=== PATIENT | female | born 1975 | race Hispanic/Latino ===

== ENCOUNTER 2018-08-02 11:07 | Emergency (ER) | payer BC ==
[~2018-08-02 11:07] MED LIST: JENUVIA PO; LISI10TA7 PO; METF-446 PO; PRAVAST PO
[2018-08-02] MEDS ORDERED: ONDANSETRON HCL 4 MG/2 ML VIAL ONE (11:19)
[2018-08-02 11:45] LABS: BILIRUBIN,URINE Negative (NEGATIVE); COLOR,URINE Yellow (YELLOW); GLUCOSE, URINE (UA) >=1000 mg/dL (NEGATIVE); KETONES,URINE Negative (NEGATIVE); LEUKOCYTE ESTERASE ,URINE Negative (NEGATIVE); NITRATE,URINE Negative (NEGATIVE); OCCULT BLOOD,URINE Negative (NEGATIVE); PH,URINE 6.5 (5.0-8.0); PROTEIN,URINE Negative (NEGATIVE); UROBILINOGEN,URINE 0.2 mg/dL (0.2-1.0)
[2018-08-02 11:46] LABS: HCG,QUAL RESULT NEGATIVE (NEGATIVE)
[2018-08-02 11:47] LABS: APPEARANCE,URINE CLEAR (CLEAR)
[2018-08-02 11:50] LABS: BASOPHILS % (AUTO) 0.3 % (0.0-5.0); EOSINOPHILS % (AUTO) 1.2 % (0.0-8.0); HEMATOCRIT 40.1 % (36-48); LYMPHOCYTES % (AUTO) 31.2 % (21.0-51.0); MEAN CORPUSCULAR HGB CONC 34.3 g/dL (32.0-36.0); MEAN CORPUSCULAR VOLUME 87.4 fL (79-99); MONOCYTES % (AUTO) 6.5 % (3.0-13.0); NEUTROPHILS % (AUTO) 60.8 % (40.0-77.0); PLATELET COUNT (AUTO) 351 K/uL (130-400); RED BLOOD CELL COUNT(AUTO) 4.58 MIL/uL (4.00-5.50); RED CELL DISTRIBUTION WIDTH 14.1 % (11.0-15.5); WHITE BLOOD COUNT (AUTO) 7.6 K/uL (4.8-10.8)
[2018-08-02 11:52] LABS: BACTERIA,URINE Rare /HPF (None Seen); RBC,URINE 0-1 /HPF (0-1); SQUAMOUS EPITHELIAL CELL,UR Rare /HPF (0-2); WBC,URINE 0-1 /HPF (0-1)
[2018-08-02 11:58] LABS: AMPHET/METH SCREEN,URINE NEGATIVE (NEGATIVE); BARBITURATE SCREEN, URINE NEGATIVE (NEGATIVE); BENZODIAZEPINES SCREEN,URINE NEGATIVE (NEGATIVE); CANNABINOID SCREEN,URINE NEGATIVE (NEGATIVE); COCAINE SCREEN,URINE NEGATIVE (NEGATIVE); OPIATE SCREEN,URINE NEGATIVE (NEGATIVE); PHENCYCLIDINE SCREEN,URINE NEGATIVE (NEGATIVE)
[2018-08-02 12:17] LABS: AMYLASE 44 U/L (25-115); LIPASE 168 U/L (114-286)
[2018-08-02] MEDS ORDERED: SODIUM CHLORIDE 0.9% 1000ML 1,000 ML IV ONE (12:23)
[2018-08-02 12:47] LABS: CREATININE 0.6 mg/dL (0.5-1.5); POTASSIUM 3.8 mmol/L (3.5-5.1)
[2018-08-02 12:55] LABS: ALBUMIN 3.9 g/dL (3.5-5.0); BILIRUBIN,TOTAL 0.2 mg/dL (0.2-1.0); TOTAL PROTEIN, SERUM 8.5 g/dL (6.0-8.3)
[2018-08-02 12:58] LABS: CREATINE KINASE, TOTAL 631 U/L (21-232); MYOGLOBIN 73 ng/mL (10-92); TROPONIN I < 0.04 ng/mL (0.00-0.06)
== END 2018-08-02 14:30 | disposition home or self-care (01) ==
LOC: EDH 11:07
DX: R55 Syncope and collapse (principal); R11.2 Nausea with vomiting, unspecified; E11.9 Type 2 diabetes mellitus without complications; E78.5 Hyperlipidemia, unspecified; Z88.6 Allergy status to analgesic agent
CPT/HCPCS: 36415; 80053; 80305; 81001; 81025; 82150; 82550; 83690; 83874; 84484 ×2; 85025; 93005; 96361; 96374; 99285; J2405; J7030

== ENCOUNTER 2022-04-25 06:52 | Observation (INO) | payer BC, OTHER ==
[~2022-04-25] VITALS: Ht 167.6 cm; Wt 115.2 kg
[~2022-04-25 06:52] MED LIST changes: +LISI10TA24 PO; -LISI10TA7 PO
[2022-04-25] MEDS ORDERED: PANTOPRAZOLE 40 MG/VIAL IVP STA (07:11)
[2022-04-25] MEDS ORDERED: LACTATED RINGERS 1000ML 1,000 ML IV ONE ×3 (07:30→13:00)
[2022-04-25 07:43] LABS: BASOPHILS % (AUTO) 0.3 % (0.0-5.0); EOSINOPHILS % (AUTO) 2.1 % (0.0-8.0); HEMATOCRIT 37.1 % (36-48); LYMPHOCYTES % (AUTO) 21.2 % (21.0-51.0); MEAN CORPUSCULAR HEMOGLOBIN 29.2 pg (27.0-33.0); MEAN CORPUSCULAR HGB CONC 33.7 g/dL (32.0-36.0); MEAN CORPUSCULAR VOLUME 86.7 fL (79-99); MONOCYTES % (AUTO) 5.8 % (3.0-13.0); NEUTROPHILS % (AUTO) 70.2 % (40.0-77.0); PLATELET COUNT (AUTO) 300 K/uL (130-400); RED BLOOD CELL COUNT(AUTO) 4.28 MIL/uL (4.00-5.50); RED CELL DISTRIBUTION WIDTH 13.9 % (11.0-15.5); WHITE BLOOD COUNT (AUTO) 6.8 K/uL (4.8-10.8)
[2022-04-25 07:44] LABS: APPEARANCE,URINE CLEAR (CLEAR); BILIRUBIN,URINE NEGATIVE (NEGATIVE); COLOR,URINE YELLOW (YELLOW); GLUCOSE, URINE (UA) >=1000 mg/dL (NEGATIVE); KETONES,URINE NEGATIVE (NEGATIVE); LEUKOCYTE ESTERASE ,URINE NEGATIVE Leu/uL (NEGATIVE); NITRATE,URINE NEGATIVE (NEGATIVE); OCCULT BLOOD,URINE NEGATIVE (NEGATIVE); PROTEIN,URINE NEGATIVE (NEGATIVE); UROBILINOGEN,URINE 0.2 mg/dL (0.2-1.0)
[2022-04-25 07:49] LABS: BACTERIA,URINE RARE /HPF (None Seen); MUCUS,URINE RARE LPF (None Seen); RBC,URINE 0-1 /HPF (0-1); SQUAMOUS EPITHELIAL CELL,UR RARE /HPF (0-2); WBC,URINE 0-1 /HPF (0-1)
[2022-04-25 08:14] LABS: CREATININE 0.7 mg/dL (0.5-1.5); POTASSIUM 3.9 mmol/L (3.5-5.1)
[2022-04-25 08:28] LABS: ALBUMIN 3.7 g/dL (3.5-5.0)
[2022-04-25] MEDS: 0.9%NACL 1000ML 1,000 ML IV SCH (14:22)
[2022-04-25] MEDS ORDERED: LIDOCAINE 5% TOPICAL PATCH TP ONE (14:30)
[2022-04-25] MEDS ORDERED: ACETAMINOPHEN WITH CODEINE 1 TAB TAB PO PRN (14:30)
[2022-04-25 14:44] LABS: HEMOGLOBIN A1C 7.2 % (4.0-6.0)
[2022-04-25 14:58] LABS: AMPHET/METH SCREEN,URINE NEGATIVE (NEGATIVE); BARBITURATE SCREEN, URINE NEGATIVE (NEGATIVE); BENZODIAZEPINES SCREEN,URINE NEGATIVE (NEGATIVE); CANNABINOID SCREEN,URINE NEGATIVE (NEGATIVE); COCAINE SCREEN,URINE NEGATIVE (NEGATIVE); OPIATE SCREEN,URINE NEGATIVE (NEGATIVE); PHENCYCLIDINE SCREEN,URINE NEGATIVE (NEGATIVE)
[2022-04-25] MEDS ORDERED: KETOROLAC 15MG/ML VIAL (15MG/ML) IV PRN (15:00)
[2022-04-25] MEDS: INSULIN HUMULIN R 100 UNIT/ML 3ML SQ SCH ×2 (16:20→21:00)
[2022-04-25] MEDS ORDERED: REPA1TAB5 PO (18:05)
[2022-04-25] MEDS ORDERED: ROSU10TA28 PO (18:05)
[2022-04-25] MEDS ORDERED: SEMA1PEN3 SQ (18:05)
[2022-04-25] MEDS ORDERED: VITB12 PO (18:05)
[2022-04-25] MEDS ORDERED: LISI10TA24 PO (18:05)
[2022-04-25] MEDS ORDERED: D (18:05)
[2022-04-25] MEDS ORDERED: EMPA10TA PO (18:05)
[2022-04-25 18:38] VITALS: BP 120/73
[2022-04-25 20:00] VITALS: BP 91/49
[2022-04-25] MEDS: FAMOTIDINE 20MG VIAL IV SCH (20:36)
[2022-04-26] VITALS: BP 110/62
[2022-04-26] MEDS: 0.9%NACL 1000ML 1,000 ML IV SCH (01:54)
[2022-04-26 04:00] VITALS: BP 124/61
[2022-04-26 04:29] LABS: BASOPHILS % (AUTO) 0.3 % (0.0-5.0); HEMATOCRIT 31.7 % (36-48); LYMPHOCYTES % (AUTO) 32.3 % (21.0-51.0); MEAN CORPUSCULAR HGB CONC 33.4 g/dL (32.0-36.0); MEAN CORPUSCULAR VOLUME 86.8 fL (79-99); MONOCYTES % (AUTO) 7.3 % (3.0-13.0); NEUTROPHILS % (AUTO) 54.8 % (40.0-77.0); PLATELET COUNT (AUTO) 286 K/uL (130-400); RED BLOOD CELL COUNT(AUTO) 3.65 MIL/uL (4.00-5.50); RED CELL DISTRIBUTION WIDTH 13.8 % (11.0-15.5)
[2022-04-26 04:57] LABS: ALBUMIN 3.2 g/dL (3.5-5.0); CREATININE 0.6 mg/dL (0.5-1.5); POTASSIUM 3.5 mmol/L (3.5-5.1)
[2022-04-26] MEDS: INSULIN HUMULIN R 100 UNIT/ML 3ML SQ SCH ×2 (06:31→11:30)
[2022-04-26 08:00] VITALS: BP 102/73
[2022-04-26] MEDS ORDERED: LISINOPRIL 10 MG TABLET PO SCH (09:00)
[2022-04-26] MEDS: FAMOTIDINE 20MG VIAL IV SCH (09:00)
[2022-04-26] MEDS ORDERED: ACETAMINOPHEN 325 MG TAB ONE (15:33)
[2022-04-26 16:00] VITALS: BP 121/72
[2022-04-26] MEDS ORDERED: ACETAMINOPHEN 325 MG TAB PO PRN (16:00)
== END 2022-04-26 17:15 | disposition home or self-care (01) ==
LOC: EDH 06:52 → EDHIP 14:02 → INTOOBSV 14:02 → 4BH 16:55
PROVIDERS: ADMIT Internal Medicine; ATTEND Internal Medicine
DX: R10.12 Left upper quadrant pain (principal); T46.6X5A Adverse effect of antihyperlipidemic and antiarteriosclerotic drugs, initial encounter; I10 Essential (primary) hypertension; E78.5 Hyperlipidemia, unspecified; E11.9 Type 2 diabetes mellitus without complications; E78.00 Pure hypercholesterolemia, unspecified; M62.82 Rhabdomyolysis; R79.89 Other specified abnormal findings of blood chemistry; Z90.5 Acquired absence of kidney; Z90.721 Acquired absence of ovaries, unilateral; Z79.899 Other long term (current) drug therapy; Z98.890 Other specified postprocedural states; Z79.84 Long term (current) use of oral hypoglycemic drugs
CPT/HCPCS: 99285; 96361 ×3; 74176; 96374; 71045; 96375 ×2; 83036; 84443; 82550 ×5; 84484 ×3; 80053 ×2; 80305; 85025 ×2; 82948 ×5; 81025; 36415 ×2; 93005; 84145; 81001; 96376; J7120 ×2; J3490 ×2; C9113; G0378; J7030; J1885

== ENCOUNTER 2023-01-19 15:16 | Emergency (ER) | payer OTHER ==
[~2023-01-19] VITALS: Ht 167.6 cm; Wt 112.9 kg
[~2023-01-19 15:16] MED LIST changes: +D; +EMPA10TA PO; -JENUVIA PO; -PRAVAST PO; +REPA1TAB5 PO; +SEMA1PEN3 SQ; +VITB12 PO
[2023-01-19 15:17] VITALS: BP 120/86; PULSE 80; RESP 18
[2023-01-19 16:06] LABS: BASOPHILS # (AUTO) 0.03 K/uL (0.00-0.20); BASOPHILS % (AUTO) 0.4 % (0.0-5.0); EOSINOPHILS # (AUTO) 0.16 K/uL (0.00-0.70); EOSINOPHILS % (AUTO) 2.2 % (0.0-8.0); HEMATOCRIT 36.8 % (36-48); IMMATURE GRANULOCYTE ABSOLUTE 0.02 K/uL (0-1); LYMPHOCYTES # (AUTO) 2.5 K/uL (1.0-4.8); LYMPHOCYTES % (AUTO) 35.1 % (21.0-51.0); MEAN CORPUSCULAR HEMOGLOBIN 29.3 pg (27.0-33.0); MEAN CORPUSCULAR HGB CONC 33.2 g/dL (32.0-36.0); MEAN CORPUSCULAR VOLUME 88.2 fL (79-99); MONOCYTES # (AUTO) 0.6 K/uL (0.1-1.0); NEUTROPHILS # (AUTO) 3.8 K/uL (1.8-7.7); PLATELET COUNT (AUTO) 362 K/uL (130-400); RED BLOOD CELL COUNT(AUTO) 4.17 MIL/uL (4.00-5.50); WHITE BLOOD COUNT (AUTO) 7.1 K/uL (4.8-10.8)
[2023-01-19 16:14] LABS: CREATININE 0.6 mg/dL (0.5-1.5); POTASSIUM 3.8 mmol/L (3.5-5.1)
[2023-01-19 16:21] LABS: ALBUMIN 3.6 g/dL (3.5-5.0); BILIRUBIN,TOTAL 0.2 mg/dL (0.2-1.0); TOTAL PROTEIN, SERUM 7.9 g/dL (6.0-8.3)
[2023-01-19 17:22] LABS: ADD UA MICROSCOPIC YES; APPEARANCE,URINE CLEAR (CLEAR); BILIRUBIN,URINE NEGATIVE (NEGATIVE); COLOR,URINE LIGHT-YELLOW (YELLOW); GLUCOSE, URINE (UA) >=1000 mg/dL (NEGATIVE); KETONES,URINE NEGATIVE (NEGATIVE); LEUKOCYTE ESTERASE ,URINE NEGATIVE Leu/uL (NEGATIVE); NITRATE,URINE NEGATIVE (NEGATIVE); OCCULT BLOOD,URINE NEGATIVE (NEGATIVE); PH,URINE 5.5 (5.0-8.0); PROTEIN,URINE NEGATIVE (NEGATIVE); UROBILINOGEN,URINE 0.2 mg/dL (0.2-1.0)
[2023-01-19 17:23] LABS: MUCUS,URINE RARE LPF (None Seen); RBC,URINE 0-1 /HPF (0-1); SQUAMOUS EPITHELIAL CELL,UR RARE /HPF (0-2); WBC,URINE 0-1 /HPF (0-1)
[2023-01-19] MEDS ORDERED: KETOROLAC 30MG VIAL (30MG/ML) IM ONE (23:30)
== END 2023-01-19 23:51 | disposition home or self-care (01) ==
LOC: EDH 15:16
DX: R10.2 Pelvic and perineal pain (principal); K80.20 Calculus of gallbladder without cholecystitis without obstruction; E11.9 Type 2 diabetes mellitus without complications; E78.00 Pure hypercholesterolemia, unspecified; I10 Essential (primary) hypertension
CPT/HCPCS: 36415; 74176; 80053; 81001; 81025; 83690; 85025

== ENCOUNTER 2024-06-02 05:38 | Emergency (ER) | payer OTHER ==
[~2024-06-02] VITALS: Ht 167.6 cm; Wt 112.9 kg
[2024-06-02] MEDS: methoCARBamol 500 MG TABLET PO SCH (07:09)
[2024-06-02] MEDS: ketOROlac 15MG/ML VIAL (15MG/ML) IM ONE (07:10)
[2024-06-02 07:31] VITALS: BP 100/65; PULSE 75; RESP 18; TEMP 97.7; O2SAT 98
--- NOTE | 2024-06-02 07:31 | ERN ---
ED Note History of Present Illness Stated Complaint: C/O PAIN TO LEFT UPPER ARM ONSET THURSDAY Chief Complaint: Upper Extremity Pain/Injury Dictation: This is a case of 49-year-old female with a past medical history of diabetes, high cholesterol who presented to the ER with the complaints of left upper extremity pain since Thursday. She states that initially the pain was localized in the left upper arm which later began radiating to her fingers intermittently. She describes the pain as sharp ,shooting. She denies experiencing similar episodes in the past. Hemodynamically stable. She denies headache, dizziness, eye pain, difficulty in swallowing/chewing, facial numbness, chest pain, palpitations, nausea, vomiting, abdominal pain, constipation/diarrhea, numbness/tingling sensation/weakness in upper and lower extremities. Allergies: Coded Allergies: ceftriaxone (Verified Allergy, Unknown, 01/05/18) simvastatin (Verified Allergy, Unknown, 01/05/18) Home Meds Active Scripts Naproxen (Naproxen) 375 Mg Tablet, 1 TAB PO BID PRN for PAIN for 7 Days, #14 TAB 0 Refills with food Prov:EMILIANO JUAREZ MD 06/02/24 Methocarbamol (Robaxin) 750 Mg Tab, 1 TAB PO BID PRN for acute muscle spasm for 3 Days, #6 TAB 0 Refills Prov:EMILIANO JUAREZ MD 06/02/24 Reported Medications Lisinopril (Lisinopril) 10 Mg Tablet, 10 MG PO DAILY, TAB 04/25/22 Empagliflozin (Jardiance) 10 Mg Tablet, 10 MG PO DAILY, TAB 04/25/22 [Vitb12] No Conflict Check, 500 MCG PO DAILY 04/25/22 Repaglinide (Repaglinide) 1 Mg Tablet, 1 MG PO TID, TAB 04/25/22 Semaglutide (Ozempic) 1 Mg/0.75 Ml Pen.injctr, 1 MG SQ ONCE A WEEK 04/25/22 [D] No Conflict Check 04/25/22 Metformin HCl (Metformin HCl) 1,000 Mg Tablet, 1000 MG PO BID, TAB 01/05/18 Past Medical History Past Medical History: Diabetes-Type II, High Cholesterol Surgical History: Other Surgical History Other: RT OVARY REMOVED, BLADDER SX Review of System Dictation Constitutional: No appetite loss, No fevers, chills , No night sweats, No weak ness, fatigue Neck: No swelling. pain or stiffness Respiratory: No cough, shortness of breath, wheezing Cardiovascular: No chest pain,, palpitations, dyspnea, No edema Gastrointestinal: No abdominal pain, No nausea, vomiting, No diarrhea, constipation Genitourinary: No painful urination, No blood in urine, No urinary incontinence, No frequency or urgency Musculoskeletal: No joint pain, muscle pain localized to left arm, no swelling or stiffness, Neurological: No numbness, tingling, No weakness, tremors or seizures Psychiatric: : No depression, No anxiety, No sleep disturbance, No Memory changes Initial Vital Sign VS Vital Signs Date Time Temp Pulse Resp B/P (MAP) Pulse Ox O2 Delivery O2 Flow Rate FiO2 06/02/24 05:40 97.7 82 20 117/70 98 Room Air 06/02/24 06:25 0 21 Physical Exam Dictation Physical Exam Dictation VITAL SIGNS: Reviewed. GENERAL APPEARANCE: Alert, oriented x3, no acute distress, obese. HEAD AND FACE: Non-traumatic. EYES: PERRL, pink conjunctivas, eyelid no trauma, anterior chamber clear. NOSE: No discharge, no bleeding. OROPHARYNX: Mouth normal, teeth no caries, tongue pink. Pharynx clear, no erythema. Tonsils no exudates, no abscesses noted. Mucous membrane moist. NECK: Supple, non-tender, no thyromegaly, no masses, no JVD, no bruits. BREAST: Deferred. CHEST: No tenderness, no crepitus, no paradoxical movement, no retractions. LUNGS: Clear, well-ventilated, symmetric, no rales, no wheezing, no rhonchi, no stridor, good breath sounds bilaterally. HEART: Regular rate, regular rhythm, no murmur, no gallops. VASCULAR: No peripheral edema. ABDOMEN: Soft, positive bowel sounds, nondistended, no guarding, nontender, no rebound, no masses no hepatomegaly, no splenomegaly, no Rodriguez's sign, no hernias. RECTAL: Deferred. GENITAL: Deferred. NEUROLOGICAL: Normal speech, gross motor function intact, gross sensory function intact. MUSCULOSKELETAL: Neck nontender, full range of motion, back nontender, full range of motion. EXTREMITIES: No sensory deficit/weakness, patient exhibits limited range of motion of the left arm, unable to perform movement due to pain, no joint tenderness SKIN: Color pink, dry, no turgor, no rash, no lacerations, no abrasions, no contusions. LYMPHATICS: Deferred. Results (Laboratory/Radiology) X-RAY Comment: PROCEDURE: FORARML - FOREARM 2VWS LT Exam Type: FOREARM 2VWS LT Clinical Information: lue pain Comparison: None Findings: The bone examination is unremarkable. No fractures or dislocations are seen. No radiopaque foreign bodies are noted. Soft tissues are preserved. IMPRESSION: Normal examination. ORDERING PHYSICIAN: FREDERICK LOUIS DO PROCEDURE: HUM 2V LT - HUMERUS 2+VWS LT Exam Type: HUMERUS 2+VWS LT Clinical Information: rue pain Comparison: None Findings: The bone examination is unremarkable. No fractures or dislocations are seen. No radiopaque foreign bodies are noted. Soft tissues are preserved. IMPRESSION: Normal examination. PROCEDURE: SHOL 2V LT - SHOULDER COMP 2+VWS LT Exam Type: SHOULDER COMP 2+VWS LT Clinical Information: lue pain Comparison: None FINDINGS: There are calcifications superior and lateral to the humeral head suggestive of calcific peritendinitis. The examination is otherwise unremarkable. Specifically, the glenohumeral and acromioclavicular joints are preserved. Visualized portions of the humerus, the scapula, and the clavicle as well as the upper ribcage are unremarkable. No pulmonary pathology is noted in the visualized portions of the upper lobe. The soft tissues are preserved. There are no other gross abnormalities. IMPRESSION: Calcific peritendinitis. Otherwise normal shoulder. Ultrasound Comment: PROCEDURE: VENOUS UNI - US VENOUS DOPPLER UNILATERAL Exam Type: US VENOUS DOPPLER UNILATERAL Clinical Information: ue pain Comparison: None Findings: The examination shows normal deep venous system. There is normal compressibility at all levels. There is no intraluminal clot. There is no occlusion. Adequate response is obtained on augmentation. Impression: No evidence of DVT. ED Course ED Course Orders Procedure Category Date Status Time Us Venous Doppler US 06/02/24 Resulted Unilateral 06:25 Methocarbamol PHA 06/02/24 Complete (Methocarbamol) 06:30 Ketorolac PHA 06/02/24 Complete Tromethamine 15mg/Ml 06:30 Shoulder Comp 2+Vws Lt RAD 06/02/24 Resulted 06:25 Forearm 2vws Lt RAD 06/02/24 Resulted 06:25 Humerus 2+Vws Lt RAD 06/02/24 Resulted 06:25 Current Medications Medications (Trade) Dose Ordered Sig/Caryn Route PRN Reason Start Time Stop Time Status Last Admin Dose Admin Ketorolac Tromethamine (toRADol) 15 mg ONCE ONCE IM 06/02/24 06:30 06/02/24 06:31 DC 06/02/24 07:10 Methocarbamol (methoCARBamol) 750 mg ONCE PO 06/02/24 06:30 06/02/24 08:25 DC 06/02/24 07:09 Vital Signs Date Time Temp Pulse Resp B/P (MAP) Pulse Ox O2 Delivery O2 Flow Rate FiO2 06/02/24 07:31 97.7 75 18 100/65 98 Room Air* 0 21 06/02/24 06:25 97.9 76 20 142/79 98 Room Air* 0 21 06/02/24 05:40 97.7 82 20 117/70 98 Room Air Medical Decision Making [facility] Potential differential diagnoses include: Shoulder muscle strain Cervical radiculopathy Peripheral neuropathy Rotator cuff injury Tendinitis Assessment: Shoulder, humerus, forearm x-ray done. She is given a dose of Robaxin p.o. and Toradol IM. I will re-evaluate the patient after treatment and diagnostic exams have returned to determine whether they require further testing, can be safely discharged home, or need admission for further treatment and evaluation. Given the social determinants of health affecting care, including literacy, access to medical care, prescription drug management, and [id number] drugs, I will ensure that treatment plans are tailored accordingly. Revaluation : Patient is alert and oriented. Hemodynamically stable. She states that her pain has improved and feels better. Shoulder x-ray resulted in calcific peritendinitis. She is diagnosed with left shoulder sprain and calcific peritendinitis. Shoulder sling is applied to the left arm. Disposition: Patient is being discharged home with a prescription of Robaxin 750 mg b.i.d. p.r.n. for acute muscle spasm, 3 days, 6 tablets and naproxen 375 mg p.o. b.i.d. for 7 days for pain and swelling Patient is advised to Follow up with PCP within 2-3 days Use the arm sling as directed Avoid heavy lifting Use Robaxin 750 mg for muscle spasm Use naproxen 375 mg for pain and swelling After the acute phase, begin with gentle stretches to improve flexibility and prevent stiffness Once pain subsides begin strengthening exercises to restore muscle strength Monitor for symptoms like persistent pain, severe weakness and inability to move ,significant bruising/swelling, worsening of current symptoms or new symptoms and seek immediate medical attention in such scenario. Avoid driving when on medication as it may cause drowsiness DX & DISP Disposition: Discharge Departure Impression: Primary Impression: Left shoulder strain Critical Time: 30 minutes Condition: Stable Scripts Naproxen (Naproxen) 375 Mg Tablet 1 TAB PO BID PRN for PAIN for 7 Days, #14 TAB 0 Refills with food Prov: EMILIANO JUAREZ MD 06/02/24 Methocarbamol (Robaxin) 750 Mg Tab 1 TAB PO BID PRN for acute muscle spasm for 3 Days, #6 TAB 0 Refills Prov: EMILIANO JUAREZ MD 06/02/24 Referrals: RYAN HUI (PCP) ATTESTATION BY PHYSICIAN I have seen and examined the patient. I reviewed the documentation, medical decision making, and treatment plan as noted by the resident above. I agree with the findings and plan of care. DIANNE RIOS MD, PRIYANKA MD Jun 02, 2024 07:31
[2024-06-02] MEDS ORDERED: METH-662 PO (07:41)
[2024-06-02] MEDS ORDERED: NAPR-1192 PO (07:41)
--- NOTE | 2024-06-02 08:06 | NUR ---
APPLIED LARGE SLING TO LT ARM, PT TOLERATED WELL.
--- NOTE | 2024-06-02 08:45 | HMCIMG ---
Exam Type: US VENOUS DOPPLER UNILATERAL Clinical Information: ue pain Comparison: None Findings: The examination shows normal deep venous system. There is normal compressibility at all levels. There is no intraluminal clot. There is no occlusion. Adequate response is obtained on augmentation. Impression: No evidence of DVT.
--- NOTE | 2024-06-02 08:46 | HMCIMG ---
Exam Type: FOREARM 2VWS LT Clinical Information: lue pain Comparison: None Findings: The bone examination is unremarkable. No fractures or dislocations are seen. No radiopaque foreign bodies are noted. Soft tissues are preserved. IMPRESSION: Normal examination.
--- NOTE | 2024-06-02 08:47 | HMCIMG ---
Exam Type: HUMERUS 2+VWS LT Clinical Information: rue pain Comparison: None Findings: The bone examination is unremarkable. No fractures or dislocations are seen. No radiopaque foreign bodies are noted. Soft tissues are preserved. IMPRESSION: Normal examination.
--- NOTE | 2024-06-02 08:50 | HMCIMG ---
Exam Type: SHOULDER COMP 2+VWS LT Clinical Information: lue pain Comparison: None FINDINGS: There are calcifications superior and lateral to the humeral head suggestive of calcific peritendinitis. The examination is otherwise unremarkable. Specifically, the glenohumeral and acromioclavicular joints are preserved. Visualized portions of the humerus, the scapula, and the clavicle as well as the upper ribcage are unremarkable. No pulmonary pathology is noted in the visualized portions of the upper lobe. The soft tissues are preserved. There are no other gross abnormalities. IMPRESSION: Calcific peritendinitis. Otherwise normal shoulder.
== END 2024-06-02 08:25 | disposition home or self-care (01) ==
LOC: EDH 05:38
DX: S46.812A Strain of other muscles, fascia and tendons at shoulder and upper arm level, left arm, initial encounter (principal); E11.9 Type 2 diabetes mellitus without complications; E78.00 Pure hypercholesterolemia, unspecified; Z79.84 Long term (current) use of oral hypoglycemic drugs; Z79.85 Long-term (current) use of injectable non-insulin antidiabetic drugs; Z79.899 Other long term (current) drug therapy; Z88.1 Allergy status to other antibiotic agents; Z90.721 Acquired absence of ovaries, unilateral; Z98.890 Other specified postprocedural states; X58.XXXA Exposure to other specified factors, initial encounter; Y93.89 Activity, other specified; Y92.89 Other specified places as the place of occurrence of the external cause; Y99.8 Other external cause status
CPT/HCPCS: 99285; 93971; 73090; 73060; 73030; 96372; J1885

== ENCOUNTER 2025-01-08 19:16 | Emergency (ER) | payer OTHER ==
[~2025-01-08] VITALS: Ht 167.6 cm; Wt 113.4 kg
[~2025-01-08 19:16] MED LIST changes: +METH-662 PO; +NAPR-1192 PO
--- NOTE | 2025-01-08 19:19 | NUR ---
UA CUP PROVIDED CALLED FOR EKG
[2025-01-08 19:45] LABS: IMMATURE GRANULOCYTE ABSOLUTE 0.03 K/uL (0-1); NUCLEATED RED BLOOD CELLS 0.0 % (0.0-0.19); PLATELET COUNT (AUTO) 353 K/uL (130-400); RED BLOOD CELL COUNT(AUTO) 4.67 MIL/uL (4.00-5.50); RED CELL DISTRIBUTION WIDTH 13.8 % (11.0-15.5); WHITE BLOOD COUNT (AUTO) 8.1 K/uL (4.8-10.8)
[2025-01-08 19:53] LABS: CREATININE 0.6 mg/dL (0.5-1.0); GLOMERULAR FILTR. RATE CALC 111.0 mL/min (>90); GLUCOSE,RANDOM 133.0 mg/dL (70-105); SODIUM SERUM 138.0 mmol/L (136-145); UREA NITROGEN, BLOOD 21.0 mg/dL (7-18)
--- NOTE | 2025-01-08 20:00 | HMCIMG ---
EXAM: CR Chest, 1 View. CLINICAL HISTORY: CHEST PAIN COMPARISON: None provided. FINDINGS: LUNGS: There is no mass, infiltrate, or acute pulmonary abnormality. PLEURAL SPACES: No pleural effusion or pneumothorax. MEDIASTINUM: The cardiomediastinal silhouette is within normal limits. BONES: No aggressive appearing osseous lesion seen. IMPRESSION: No acute cardiopulmonary pathology is evident. /[place]
--- NOTE | 2025-01-08 20:00 | ERN ---
General Chief Complaint: Chest Pain Stated Complaint: CP Time Seen by MD: 19:25 Source: patient History of Present Illness Initial Comments 89-year-old female obese with type 2 diabetes and hypercholesterolemia on Mounjaro no who just had her dose increased from 7.5-10.5 mg experienced shortness of breath with chest pressure last night. She fell asleep and then woke up this morning with the same symptoms. She describes her pain as pressure, like something is squeezing her shoulders together, and it is associated with nausea but no vomiting. In addition she is having tingling associated with both her upper extremities. Timing/Duration: 24 hours Allergies: Coded Allergies: ceftriaxone (Verified Allergy, Unknown, 01/05/18) simvastatin (Verified Allergy, Unknown, 01/05/18) Home Meds Active Scripts Naproxen (Naproxen) 375 Mg Tablet, 1 TAB PO BID PRN for PAIN for 7 Days, #14 TAB 0 Refills with food Prov:EMILIANO JUAREZ MD 06/02/24 Methocarbamol (Robaxin) 750 Mg Tab, 1 TAB PO BID PRN for acute muscle spasm for 3 Days, #6 TAB 0 Refills Prov:EMILIANO JUAREZ MD 06/02/24 Reported Medications Lisinopril (Lisinopril) 10 Mg Tablet, 10 MG PO DAILY, TAB 04/25/22 Empagliflozin (Jardiance) 10 Mg Tablet, 10 MG PO DAILY, TAB 04/25/22 [Vitb12] No Conflict Check, 500 MCG PO DAILY 04/25/22 Repaglinide (Repaglinide) 1 Mg Tablet, 1 MG PO TID, TAB 04/25/22 Semaglutide (Ozempic) 1 Mg/0.75 Ml Pen.injctr, 1 MG SQ ONCE A WEEK 04/25/22 [D] No Conflict Check 04/25/22 Metformin HCl (Metformin HCl) 1,000 Mg Tablet, 1000 MG PO BID, TAB 01/05/18 Past Medical History Past Medical History: Diabetes-Type II, High Cholesterol Medical History Other: Obese Past Surgical History: Other Surgical History Other: RT OVARY REMOVED, BLADDER SX Constitutional: (-) chills, (-) diaphoresis, (-) fever, (-) malaise, (-) weakness, (-) other documentation EENTM: (-) eye pain, (-) blurred vision, (-) tearing, (-) double vision, (-) ear pain, (-) ear discharge, (-) nose pain, (-) nose congestion, (-) throat pain, (-) Throat swelling, (-) mouth pain, (-) tooth pain, (-) mouth swelling, (-) other documentation Respiratory: (-) cough, (-) orthopnea, (-) short of breath, (-) stridor, (-) wheezing, (-) other documentation Cardiovascular: (-) chest pain, (-) edema, (-) palpitations, (-) syncope, (-) dyspnea on exertion, (-) other documentation Gastrointestinal/Abdominal: (+) nausea Genitourinary: (-) vaginal discharge, (-) vaginal bleeding, (-) dysuria, (-) frequency, (-) hematuria, (-) pain, (-) other documentation Musculoskeletal: (-) Neck pain, (-) back pain, (-) Flank Pain, (-) joint pain, (-) joint swelling, (-) muscle pain, (-) muscle stiffness, (-) gout, (-) other documentation Physical Exam General Appearance: (+) mild distress Orientation: (+) alert, (+) oriented x 3 Head/Face Trauma: No Eye: bilateral eye normal inspection, bilateral eye PERRL, bilateral eye EOMI Ear, Nose, Throat: (+) hearing grossly normal, (+) normal ENT inspection, (+) normal pharynx Ear, Nose, Throat Comment Pharynx appears dry Neck: (+) normal inspection, (+) supple, (+) full range of motion, (+) non- tender Respiratory: (+) chest non-tender, (+) decreased breath sounds Respiratory Comment Decreased breath sounds they are clear. They maybe decreased just because of patient's effort. Heart: (+) regular Vascular: (+) no edema, (+) normal peripheral pulse, (+) no JVD Gastrointestinal: (+) soft, (+) non-tender, (+) bowel sound present Results Laboratory and Microbiology Lab and Micro Result Laboratory Tests Test 01/08/25 19:26 01/08/25 21:18 White Blood Count 8.1 K/uL (4.8-10.8) Red Blood Count 4.67 MIL/uL (4.00-5.50) Hemoglobin 14.0 g/dL (12.0-16.0) Hematocrit 41.4 % (36-48) Mean Corpuscular Volume 88.7 fL (79-99) Mean Corpuscular Hemoglobin 30.0 pg (27.0-33.0) Mean Corpuscular Hemoglobin Concent 33.8 g/dL (32.0-36.0) Red Cell Distribution Width 13.8 % (11.0-15.5) Platelet Count 353 K/uL (130-400) Mean Platelet Volume 9.6 fL (7.5-10.5) Immature Granulocyte % (Auto) 0.4 % (0-1) Neutrophils (%) (Auto) 56.3 % (40.0-77.0) Lymphocytes (%) (Auto) 34.0 % (21.0-51.0) Monocytes (%) (Auto) 6.9 % (3.0-13.0) Eosinophils (%) (Auto) 2.0 % (0.0-8.0) Basophils (%) (Auto) 0.4 % (0.0-5.0) Neutrophils # (Auto) 4.6 K/uL (1.8-7.7) Lymphocytes # (Auto) 2.8 K/uL (1.0-4.8) Monocytes # (Auto) 0.6 K/uL (0.1-1.0) Eosinophils # (Auto) 0.16 K/uL (0.00-0.70) Basophils # (Auto) 0.03 K/uL (0.00-0.20) Absolute Immature Granulocyte (auto 0.03 K/uL (0-1) Nucleated Red Blood Cells 0.0 % (0.0-0.19) Sodium Level 138 mmol/L (136-145) Potassium Level 3.7 mmol/L (3.5-5.1) Chloride Level 102 mmol/L (101-111) Carbon Dioxide Level 26 mmol/L (21-32) Blood Urea Nitrogen 21 mg/dL (7-18) H Creatinine 0.6 mg/dL (0.5-1.0) Glomerular Filtration Rate Calc 111 mL/min (>90) Random Glucose 133 mg/dL (70-105) H Total Calcium 9.3 mg/dL (8.5-10.1) Total Creatine Kinase 500 U/L (21-232) #*H Troponin I High Sensitivity < 4 ng/L (4-50) L Urine Color LIGHT-YELLOW (YELLOW) Urine Appearance CLEAR (CLEAR) Urine pH 5.5 (5.0-8.0) Urine Specific [place] 1.036 (1.001-1.031) Urine Protein NEGATIVE mg/dL (NEGATIVE) Urine Glucose (UA) >=1000 mg/dL (NEGATIVE) H Urine Ketones NEGATIVE mg/dL (NEGATIVE) Urine Occult Blood NEGATIVE (NEGATIVE) Urine Nitrate NEGATIVE (NEGATIVE) Urine Bilirubin NEGATIVE mg/dL (NEGATIVE) Urine Urobilinogen 0.2 mg/dL (0.2-1.0) Urine Leukocyte Esterase NEGATIVE Romulo/uL Urine RBC 2-5 /HPF (0-1) H Urine WBC 0-1 /HPF (0-1) Urine Squamous Epithelial Cells RARE /HPF (0-2) Urine Bacteria None /HPF (None Seen) MDM MDM: Differential diagnosis: Acute [place], pneumonia, electrolyte abnormalities, dehydration, anxiety, pericardial effusion. Rationale: Tests considered and ordered secondary to shared decision making include: Previous outside records reviewed: Old ER visits. Risk of complication and/or morbidity or mortality of patient management: None Medications-Per medication reconciliation Need for hospitalization: Patient does meet criteria for hospitalization. Need for emergency major/minor surgery: No There are no social concerns with this patient. Prescription drug management Prescriptions will include symptomatic care Patient's prior external medical records from other ER visits were reviewed by me as indicated. Prior testing and results from previous visits were reviewed. Prior tests were taken into account with medical decision making and resource utilization, independent historian/historians were used to obtain complete medical history. I independently interpreted the test that were performed, results were reviewed by me and considered findings on radiology if ordered. Patient's cardiac enzymes are normal. She does have a slight elevation of her CK. I do think the majority of her symptoms could be explained by dehydration. The increase in the Mounjaro no could also be playing a role. Her symptoms started two weeks ago and that is when she increased her dose of Mounjaro. Mounjaro does cause decreased appetite decreased thirst. Patient did state after she received her L of fluid that she felt better and the numbness and tingling in her bilateral arms was much better, except she was still experiencing a little chest tightness. The symptom was relieved with a GI cocktail. ED Course Orders Procedure Category Date Status Time Vital Signs Per CPOE 01/08/25 Transmitted Routine 19:19 Chest 1vw RAD 01/08/25 Resulted 19:19 12 Lead Ekg Tracing- EKG 01/08/25 Logged Technical 19:19 Oxygen By Nc/Pulse Ox CPOE 01/08/25 Transmitted 19:19 Maintain Iv CPOE 01/08/25 Transmitted 19:19 Iv Insertion CPOE 01/08/25 Transmitted 19:19 Cardiac Monitoring CPOE 01/08/25 Transmitted 19:19 Pulse Oximetry With CPOE 01/08/25 Transmitted Vs And Prn 19:19 Cbc With Differential LAB 01/08/25 Complete 19:19 Activity: Br W/Brp CPOE 01/08/25 Transmitted With Assist 19:19 Creatine Kinase, Total LAB 01/08/25 Complete 19:19 Troponin I High LAB 01/08/25 Complete Sensitivity 19:19 Urinalysis Profile LAB 01/08/25 Complete 19:19 Basic Metabolic Panel LAB 01/08/25 Complete 19:19 Lactated Ringers PHA 01/08/25 Complete 1000ml (Lactated 19:27 Lidocaine Hcl 2% PHA 01/08/25 Complete Viscous (Lidocaine Hcl 21:30 Mag/Alum/Simeth 30ml PHA 01/08/25 Complete (Maalox Plus 30ml) 21:30 Dicyclomine Hcl PHA 01/08/25 Complete (Bentyl 10mg/5ml 21:30 Current Medications Medications (Trade) Dose Ordered Sig/Caryn Route PRN Reason Start Time Stop Time Status Last Admin Dose Admin Al Hydroxide/Mg Hydroxide (MAALox PLUS 30ML) 30 ml ONCE ONCE PO 01/08/25 21:30 01/08/25 21:31 DC 01/08/25 21:34 Dicyclomine HCl (Bentyl 10mg/5ml Syrup) 10 mg ONCE ONCE PO 01/08/25 21:30 01/08/25 21:31 DC 01/08/25 21:34 Lactated Ringer's (Lactated Ringers 1000ml) 1,000 ml BOLUS STAT IV 01/08/25 19:27 01/08/25 19:29 DC 01/08/25 20:30 Lidocaine HCl (Lidocaine HCl 2% Viscous) 10 ml ONCE ONCE PO 01/08/25 21:30 01/08/25 21:31 DC 01/08/25 21:34 Vital Signs Date Time Temp Pulse Resp B/P (MAP) Pulse Ox O2 Delivery O2 Flow Rate FiO2 01/08/25 20:35 98.6 95 18 133/71 98 Room Air* 0 21 01/08/25 19:18 98.8 99 20 123/57 97 Room Air DX & DISP Disposition: Discharge Departure Impression: Primary Impression: Chest tightness Additional Impressions: Numbness and tingling of right arm, Numbness and tingling in left arm Condition: Stable Additional Instructions: You have come in to the emergency room with increased feelings of chest tightness and bilateral arm numbness and tingling. Are laboratory studies were negative for cardiac cause of these symptoms. There was a slight increase in your CK level which can be a sign of dehydration or muscle damage. This increase was extremely slight and we will resolve with simple fluids. There is possibly an association between Mounjaro and elevated CK although this has not been proven. Also it may simply be a reflection of the poor p.o. and liquid intake that some people experience after an increase in her Mounjaro medicate dose. Giving her fluids did resolve most of your symptoms and we have ruled out a cardiac cause for them as well. Please follow-up with her primary care physician if these symptoms continue. Drink plenty of fluids make sure that your urine runs clear at least once a day. Referrals: RYAN HUI (PCP) TESSY DELACRUZ MD Jan 08, 2025 20:00
[2025-01-08 20:15] LABS: CREATINE KINASE, TOTAL 500.0 U/L (21-232)
--- NOTE | 2025-01-08 20:19 | NUR ---
PT UNABLE TO COLLECTED A UA AT THIS TIME
[2025-01-08] MEDS: LACTATED RINGERS 1000ML IV STA (20:30)
[2025-01-08 21:33] LABS: APPEARANCE,URINE CLEAR (CLEAR); GLUCOSE, URINE (UA) >=1000 mg/dL (NEGATIVE); LEUKOCYTE ESTERASE ,URINE NEGATIVE Leu/uL (NEGATIVE); NITRATE,URINE NEGATIVE (NEGATIVE); OCCULT BLOOD,URINE NEGATIVE (NEGATIVE)
[2025-01-08] MEDS: MAG/ALUM/SIMETH 30 ML UDCUP PO ONE (21:34)
[2025-01-08] MEDS: LIDOCAINE HCL 2% VISCOUS 15 ML UDCUP PO ONE (21:34)
[2025-01-08] MEDS: DICYCLOMINE HCL 10 MG/5 ML ML PO ONE (21:34)
[2025-01-08 21:36] LABS: ADD UA MICROSCOPIC YES
[2025-01-08 21:37] LABS: SQUAMOUS EPITHELIAL CELL,UR RARE /HPF (0-2)
[2025-01-08 22:24] VITALS: BP 124/72; PULSE 88; RESP 18; TEMP 98.2; O2SAT 100
--- NOTE | 2025-01-09 06:39 | EKG ---
[facility] Test Date: 2025-01-08 Test Time: 19:20:23 Pat Name: RUDY DE LOS SANTOS Department: [facility] Room: Gender: F Machine [employer]: [id number] : [id number] Requested By: TESSY DELACRUZ Order Number: [id number] Reading MD: Jesse Beckman Measurements Intervals [place] Rate: 97 P: 57 NV: 188 QRS: -17 QRSD: 93 T: 29 QT: 344 QTc: 438 Interpretive Statements Sinus rhythm Low voltage, precordial leads Consider anterior infarct Compared to ECG 04/25/2022 07:48:42 Low QRS voltage now present Sinus bradycardia no longer present Myocardial infarct finding still present Electronically Signed On 01-09-2025 19:16:13 CDT by Jesse Beckman Please click the below link to view image of tracing.
== END 2025-01-08 22:26 | disposition home or self-care (01) ==
LOC: EDH 19:16
DX: R20.0 Anesthesia of skin (principal); R20.2 Paresthesia of skin; R07.89 Other chest pain; R06.02 Shortness of breath; R11.0 Nausea; E11.9 Type 2 diabetes mellitus without complications; E78.00 Pure hypercholesterolemia, unspecified; E66.9 Obesity, unspecified; Z88.1 Allergy status to other antibiotic agents; Z79.84 Long term (current) use of oral hypoglycemic drugs; Z79.899 Other long term (current) drug therapy; Z90.721 Acquired absence of ovaries, unilateral; Z79.85 Long-term (current) use of injectable non-insulin antidiabetic drugs
CPT/HCPCS: 99285; 82550; 71045; 84484; 80048; 85025; 81001; 36415; 93005; J7120